=== PATIENT | male | born 1970 | race Caucasian/White ===

== ENCOUNTER 2021-03-01 17:55 | Emergency (ER) | payer MEDICARE, OTHER ==
[2021-03-01 19:20] LABS: BASOPHIL 0.4 % (0-2); EOSINOPHIL 0.4 % (0-5); HCT 45.9 % (42.0-52.0); HGB 15.7 g/dl (13.2-18.0); LYMPHOCYTE 31.8 % (15-48); MCH 30.3 pg (25.0-31.0); MCHC 34.2 g/dL (32.0-36.0); MCV 88.6 fL (78.0-100.0); MONOCYTE 5.3 % (0-12); MPV 9.8 fL (6.0-9.5); NEUTROPHIL 61.7 % (41-80); NRBC 0; PLT 242 K/uL (150-400); RBC 5.18 M/uL (4.70-6.00); RDW 12.5 % (11.5-14.0); WBC 4.9 K/uL (4.0-10.5)
[2021-03-01 19:22] LABS: BILIRUBIN NEGATIVE (NEGATIVE); BLOOD NEGATIVE Ery/uL (NEGATIVE); CLARITY CLEAR (CLEAR); COLOR YELLOW (YELLOW); GLUCOSE (U) NORMAL (NORMAL); LEUKOCYTES NEGATIVE Leu/uL (NEGATIVE); NITRITE NEGATIVE (NEGATIVE); PROTEIN NEGATIVE (NEGATIVE); SPECIFIC GRAVITY 1.025 (1.001-1.030)
[2021-03-01 19:23] LABS: AMPHETAMINES NEGATIVE (NEGATIVE); BARBITURATES NEGATIVE (NEGATIVE); ECSTASY (MDMA) NEGATIVE (NEGATIVE); MARIJUANA (THC) NEGATIVE (NEGATIVE); METHADONE NEGATIVE (NEGATIVE); OPIATES NEGATIVE (NEGATIVE); OXYCODONE NEGATIVE (NEGATIVE)
[2021-03-01 19:41] LABS: BUN 8 mg/dL (7-18); BUN/CREAT RATIO (CALC) 10.8 RATIO; CHLORIDE 103 mmol/L (98-107); CO2 (BICARBONATE) 26 mmol/L (21-32); CREATININE 0.74 mg/dL (0.67-1.17); GLUCOSE 98 mg/dL (74-106)
[2021-03-01 19:42] LABS: ACETAMINOPHEN (TYLENOL) < 2.0 ug/mL (10.0-30.0)
== END 2021-03-02 05:15 ==
LOC: FER 17:55
PROVIDERS: Emergency Medicine
DX: R44.3 Hallucinations, unspecified (principal); J44.9 Chronic obstructive pulmonary disease, unspecified; F17.200 Nicotine dependence, unspecified, uncomplicated; Z20.822 Contact with and (suspected) exposure to COVID-19
CPT/HCPCS: 36415; 80048; 80305; 81003; 85025; 99284; G0480; U0002